=== PATIENT | male | born 1995 ===

== ENCOUNTER 2024-07-04 17:49 | Emergency (ER) | payer OTHER, BC ==
[~2024-07-04] VITALS: Ht 172.7 cm; Wt 75.1 kg
[2024-07-04] MEDS ORDERED: Rabies Immune Globulin/Pf 1,500 UNIT/5 ML SYR IM ONE (18:15)
[2024-07-04] MEDS ORDERED: AMOX TR-K CLV1 EAC1 PO (18:21)
[2024-07-04 18:48] VITALS: BP 138/76
== END 2024-07-04 18:48 | disposition home or self-care (01) ==
LOC: ED 17:49
DX: S71.151A Open bite, right thigh, initial encounter (principal); Z29.14 Encounter for prophylactic rabies immune globulin; Z20.3 Contact with and (suspected) exposure to rabies; W54.0XXA Bitten by dog, initial encounter; Y93.01 Activity, walking, marching and hiking
CPT/HCPCS: 90375; 90471; 90675; 96372; 99283-25